=== PATIENT | female | born 1930 | race Caucasian/White ===

== ENCOUNTER 2016-08-14 06:30 | Inpatient (IN) | payer OTHER ==
[~2016-08-14] VITALS: Ht 167.6 cm; Wt 77.2 kg
[~2016-08-14 06:30] MED LIST: ATIVAN0.5 M1 PO; CATAPRES0.1 MG PO; CENTRUM SILVER1 EACH PO; CIPRO XR 500 M500 M1 PO; CIPRO500 MG PO; COREG25 M1 PO; CULTURELLE CAP1 EACH PO; FIBERCON625 MG PO; GABAPENTIN100 MG PO; GAS-X125 MG PO; HIPREX1 GM PO; LEXAPRO20 MG PO; LISINOPRIL20 MG PO; LISINOPRIL30 MG PO; NEXIUM40 MG PO; NORCO 5-325 TA1 EACH PO; SYNTHROID50 MCG PO; VITAMIN D32000 UNI1 PO; VIVELLE-DOT0.05 MG TD; ZESTRIL,PRINIVI30 MG PO; ZETIA10 MG PO
[2016-08-14 08:11] LABS: EOSINOPHIL (%) 0.2 % (0-5); HEMATOCRIT 28.2 % (36.0-46.0); IMMATURE GRANULOCYTE (%) 1.5 % (0.0-0.7); IMMATURE GRANULOCYTE COUNT 0.1 K/uL; LYMPHOCYTE COUNT 0.4 K/uL (1.0-2.8); MCH 29.5 PG (29.0-34.0); MCHC 32.6 G/DL (30.0-36.0); MCV 90.4 FL (83-99); MONOCYTE (%) 13.2 % (3-12); MONOCYTE COUNT 0.7 K/uL (0-0.8); NEUTROPHIL (%) 76.9 % (45-76); PLATELET COUNT 81 K/uL (156-360); RBC DIS.WIDTH-CV 14.1 % (11.8-14.6); RBC DIS.WIDTH-SD 46.4 % (39-53); RED BLOOD COUNT 3.12 M/uL (3.80-5.20)
[2016-08-14 08:22] LABS: WHITE BLOOD COUNT 5.2 K/uL (4.1-10.2)
[2016-08-14 08:38] LABS: CHLORIDE 105 mEq/L (99-109); POTASSIUM 3.3 mEq/L (3.7-5.4); SODIUM 137 mEq/L (136-147)
[2016-08-14 08:40] LABS: GLUCOSE 125 mg/dL (70-99)
[2016-08-14 08:42] LABS: ANION GAP 6 MEQ/L (2-14); TOTAL BILIRUBIN 0.5 mg/dL (0.0-1.0)
[2016-08-14 08:44] LABS: ALKALINE PHOSPHATASE 71 IU/L (3-129); GFR ESTIMATE (CALCULATED) 41 mL/min/
[2016-08-14 08:45] LABS: UREA NITROGEN (BUN) 16 mg/dL (9-23)
[2016-08-14 08:46] LABS: DIRECT BILIRUBIN 0.3 mg/dL (0.0-0.3)
[2016-08-14 08:47] LABS: LIPASE 2 U/L (1.0-51.0)
[2016-08-14 10:50] LABS: C DIFF TOXIN POSITIVE (NEGATIVE); PROBE CHECK PASS
[2016-08-14] MEDS ORDERED: CENTRUM SILVER1 EAC3 PO (11:20)
[2016-08-14] MEDS ORDERED: GAS-X125 MG PO (11:22)
[2016-08-14 14:28] VITALS: BP 173/74
[2016-08-14 23:58] VITALS: BP 170/70
[2016-08-15] VITALS (7 sets, daily range): BP systolic 170–230; BP diastolic 58–82
[2016-08-15 06:33] LABS: HEMATOCRIT 27.2 % (36.0-46.0); MCH 29.3 PG (29.0-34.0); MCHC 32.4 G/DL (30.0-36.0); MCV 90.7 FL (83-99); MEAN PLAT.VOLUME 10.1 uM^3 (9.5-12.4); PLATELET COUNT 68 K/uL (156-360); RBC DIS.WIDTH-CV 14.3 % (11.8-14.6); RBC DIS.WIDTH-SD 47.8 % (39-53); WHITE BLOOD COUNT 3.5 K/uL (4.1-10.2)
[2016-08-15 06:59] LABS: ALKALINE PHOSPHATASE 64 IU/L (3-129); ANION GAP 10 MEQ/L (2-14); CHLORIDE 102 MEQ/L (99-109); GFR ESTIMATE (CALCULATED) 45 mL/min/; POTASSIUM 3.3 MEQ/L (3.7-5.4); SAMPLE HEMOLYSIS CHECK 0; SAMPLE ICTERIC CHECK 0; SAMPLE LIPEMIA CHECK 0; SODIUM 133 MEQ/L (136-147); TOTAL BILIRUBIN 0.4 MG/DL (0.0-1.0); UREA NITROGEN (BUN) 18 mg/dL (9-23)
[2016-08-15 07:12] LABS: GLUCOSE 93 mg/dL (70-99)
[2016-08-16] VITALS (8 sets, daily range): BP systolic 118–220; BP diastolic 52–75
[2016-08-16 07:43] LABS: HEMATOCRIT 25.8 % (36.0-46.0); MCH 30.6 PG (29.0-34.0); MCHC 33.3 G/DL (30.0-36.0); MCV 91.8 FL (83-99); RBC DIS.WIDTH-CV 14.4 % (11.8-14.6); RBC DIS.WIDTH-SD 48.9 % (39-53); RED BLOOD COUNT 2.81 M/uL (3.80-5.20); WHITE BLOOD COUNT 2.9 K/uL (4.1-10.2)
[2016-08-16 07:44] LABS: PLATELET COUNT 98 K/uL (156-360)
[2016-08-16 08:20] LABS: ANION GAP 5 MEQ/L (2-14); CHLORIDE 111 MEQ/L (99-109); GFR ESTIMATE (CALCULATED) 50 mL/min/; GLUCOSE 85 mg/dL (70-99); SAMPLE HEMOLYSIS CHECK 0; SAMPLE ICTERIC CHECK 0; SAMPLE LIPEMIA CHECK 0; SODIUM 138 MEQ/L (136-147); UREA NITROGEN (BUN) 19 mg/dL (9-23)
[2016-08-16 08:21] LABS: POTASSIUM 4.4 MEQ/L (3.7-5.4)
[2016-08-16 14:47] LABS: ADD MIUA? YES; BILIRUBIN NEGATIVE; BLOOD SMALL; COLOR YELLOW ((YELLOW)); GLUCOSE (STRIP) NEGATIVE; KETONES NEGATIVE; LEUKOCYTES LARGE; NITRITE POSITIVE; PROTEIN (STRIP) 30; SPECIFIC GRAVITY 1.009 (1.000-1.030); UROBILINOGEN 0.2 MG/DL (0.2-1.0)
[2016-08-16 15:48] LABS: BACTERIA 4+ /HPF; CASTS NONE SEEN /LPF; EPITHELIAL CELLS RARE /HPF; MUCUS NONE SEEN /LPF; RED BLOOD CELLS NONE SEEN /HPF (0-5); WHITE BLOOD CELLS TNTC /HPF (0-5)
[2016-08-17] VITALS (8 sets, daily range): BP systolic 150–190; BP diastolic 56–74
[2016-08-17 07:30] LABS: EOSINOPHIL (%) 0.9 % (0-5); HEMATOCRIT 25.2 % (36.0-46.0); IMMATURE GRANULOCYTE (%) 1.4 % (0.0-0.7); IMMATURE GRANULOCYTE COUNT 0.1 K/uL; INSTRUMENT ABS NEUTROPHIL CT 2.3 K/uL; LYMPHOCYTE COUNT 0.8 K/uL (1.0-2.8); MCH 30.7 PG (29.0-34.0); MCHC 33.3 G/DL (30.0-36.0); MEAN PLAT.VOLUME 10.1 uM^3 (9.5-12.4); MONOCYTE (%) 8.9 % (3-12); MONOCYTE COUNT 0.3 K/uL (0-0.8); NEUTROPHIL (%) 65.9 % (45-76); NEUTROPHIL COUNT 2.3 K/uL (1.8-6.4); PLATELET COUNT 106 K/uL (156-360); RBC DIS.WIDTH-CV 14.8 % (11.8-14.6); RBC DIS.WIDTH-SD 49.2 % (39-53); RED BLOOD COUNT 2.74 M/uL (3.80-5.20); WHITE BLOOD COUNT 3.5 K/uL (4.1-10.2)
[2016-08-18 02:40] VITALS: BP 148/62
[2016-08-18 08:15] VITALS: BP 160/72
[2016-08-18 08:18] LABS: HEMATOCRIT 26.4 % (36.0-46.0); MCH 30.4 PG (29.0-34.0); MCV 92.3 FL (83-99); MEAN PLAT.VOLUME 9.6 uM^3 (9.5-12.4); PLATELET COUNT 111 K/uL (156-360); RBC DIS.WIDTH-CV 14.7 % (11.8-14.6); RBC DIS.WIDTH-SD 49.4 % (39-53); RED BLOOD COUNT 2.86 M/uL (3.80-5.20); WHITE BLOOD COUNT 3.6 K/uL (4.1-10.2)
[2016-08-18 09:43] LABS: ANION GAP 6 MEQ/L (2-14); CHLORIDE 105 MEQ/L (99-109); GFR ESTIMATE (CALCULATED) 50 mL/min/; GLUCOSE 88 mg/dL (70-99); IRON 65 MCG/DL (35-150); SAMPLE HEMOLYSIS CHECK 0; SAMPLE ICTERIC CHECK 0; SAMPLE LIPEMIA CHECK 0; SODIUM 139 MEQ/L (136-147); UREA NITROGEN (BUN) 22 mg/dL (9-23)
[2016-08-18 10:21] LABS: FERRITIN 236 NG/ML (10-291)
[2016-08-18] MEDS ORDERED: APRESOLINE50 MG PO (10:38)
[2016-08-18] MEDS ORDERED: CLONIDINE HCL0.2 MG PO (10:38)
[2016-08-18] MEDS ORDERED: VANCOMYCIN HCL125 MG PO (10:38)
[2016-08-18 12:05] VITALS: BP 150/63
== END 2016-08-18 15:18 | disposition home or self-care (01) | DRG 872 ==
LOC: EME → EDBD 06:30 → EME 06:30 → EDOF 11:58 → 5EAST 11:58
PROVIDERS: Emergency Medicine; Hospitalist; Internal Medicine
DX: A41.89 Other specified sepsis (principal); A04.7 Enterocolitis due to Clostridium difficile; D61.818 Other pancytopenia; K57.32 Diverticulitis of large intestine without perforation or abscess without bleeding; D69.6 Thrombocytopenia, unspecified; G20 Parkinson's disease; G62.9 Polyneuropathy, unspecified; M79.7 Fibromyalgia; E78.5 Hyperlipidemia, unspecified; E03.9 Hypothyroidism, unspecified; E87.6 Hypokalemia; I16.0 Hypertensive urgency; E86.0 Dehydration; D63.1 Anemia in chronic kidney disease; K57.30 Diverticulosis of large intestine without perforation or abscess without bleeding; N30.00 Acute cystitis without hematuria; Z87.440 Personal history of urinary (tract) infections; Z66 Do not resuscitate; I12.9 Hypertensive chronic kidney disease with stage 1 through stage 4 chronic kidney disease, or unspecified chronic kidney disease; N18.9 Chronic kidney disease, unspecified
CPT/HCPCS: 74176; 80048; 80053; 80076; 81003; 82272; 82607; 82728; 82746; 83540; 83605; 83690; 84466; 85025; 85027; 87493; 99281; 99285; J0360; J0696; J1644; J3480; J7030; J7050; S0030

== ENCOUNTER 2017-02-23 11:01 | Inpatient (IN) | payer OTHER ==
[~2017-02-23] VITALS: Ht 172.7 cm; Wt 71.9 kg
[~2017-02-23 11:01] MED LIST changes: +APRESOLINE50 MG PO; +CENTRUM SILVER1 EAC3 PO; +CLONIDINE HCL0.2 MG PO; -LISINOPRIL20 MG PO; +VANCOMYCIN HCL125 MG PO
[2017-02-23 12:41] LABS: EOSINOPHIL (%) 0.2 % (0-5); HEMATOCRIT 30.3 % (36.0-46.0); IMMATURE GRANULOCYTE (%) 0.7 % (0.0-0.7); INSTRUMENT ABS NEUTROPHIL CT 3.1 K/uL; LYMPHOCYTE COUNT 0.6 K/uL (1.0-2.8); MCH 30.3 PG (29.0-34.0); MCV 91.8 FL (83-99); MEAN PLAT.VOLUME 9.7 uM^3 (9.5-12.4); MONOCYTE (%) 9.7 % (3-12); MONOCYTE COUNT 0.4 K/uL (0-0.8); NEUTROPHIL (%) 74.5 % (45-76); NEUTROPHIL COUNT 3.1 K/uL (1.8-6.4); PLATELET COUNT 75 K/uL (156-360); RBC DIS.WIDTH-CV 13.5 % (11.8-14.6); RBC DIS.WIDTH-SD 46.3 % (39-53); WHITE BLOOD COUNT 4.2 K/uL (4.1-10.2)
[2017-02-23 12:49] LABS: CHLORIDE 105 mEq/L (99-109); POTASSIUM 3.5 mEq/L (3.7-5.4); SODIUM 140 mEq/L (136-147)
[2017-02-23 12:51] LABS: GLUCOSE 106 mg/dL (70-99)
[2017-02-23 12:52] LABS: ANION GAP 8 MEQ/L (2-14)
[2017-02-23 12:55] LABS: GFR ESTIMATE (CALCULATED) 45 mL/min/; UREA NITROGEN (BUN) 17 mg/dL (9-23)
[2017-02-23 13:24] LABS: C DIFF TOXIN POSITIVE (NEGATIVE)
[2017-02-23 13:25] LABS: PROBE CHECK PASS
[2017-02-23 16:33] VITALS: BP 175/77
[2017-02-23 16:49] LABS: C-REACTIVE PROTEIN 21.8 MG/L (0-10)
[2017-02-23 20:06] VITALS: BP 189/71
[2017-02-23 21:32] VITALS: BP 220/64
[2017-02-23 22:44] VITALS: BP 142/50
[2017-02-24] VITALS (7 sets, daily range): BP systolic 138–160; BP diastolic 63–70
[2017-02-24 06:21] LABS: HEMATOCRIT 25.4 % (36.0-46.0); MCH 30.2 PG (29.0-34.0); MCHC 32.7 G/DL (30.0-36.0); MCV 92.4 FL (83-99); MEAN PLAT.VOLUME 10.1 uM^3 (9.5-12.4); PLATELET COUNT 61 K/uL (156-360); RBC DIS.WIDTH-SD 47.4 % (39-53); RED BLOOD COUNT 2.75 M/uL (3.80-5.20)
[2017-02-24 07:02] LABS: ANION GAP 6 MEQ/L (2-14); CHLORIDE 109 MEQ/L (99-109); GFR ESTIMATE (CALCULATED) 50 mL/min/; GLUCOSE 96 mg/dL (70-99); POTASSIUM 3.6 MEQ/L (3.7-5.4); SAMPLE HEMOLYSIS CHECK 0; SAMPLE ICTERIC CHECK 0; SAMPLE LIPEMIA CHECK 0; SODIUM 140 MEQ/L (136-147); UREA NITROGEN (BUN) 14 mg/dL (9-23)
[2017-02-25 04:00] VITALS: BP 189/77
[2017-02-25 06:44] LABS: HEMATOCRIT 25.6 % (36.0-46.0); MCH 29.8 PG (29.0-34.0); MCV 93.1 FL (83-99); PLATELET COUNT 60 K/uL (156-360); RBC DIS.WIDTH-CV 13.8 % (11.8-14.6); RBC DIS.WIDTH-SD 47.6 % (39-53); RED BLOOD COUNT 2.75 M/uL (3.80-5.20); WHITE BLOOD COUNT 3.6 K/uL (4.1-10.2)
[2017-02-25 07:05] LABS: ANION GAP 5 MEQ/L (2-14); CHLORIDE 110 MEQ/L (99-109); GFR ESTIMATE (CALCULATED) 50 mL/min/; GLUCOSE 101 mg/dL (70-99); POTASSIUM 4.1 MEQ/L (3.7-5.4); SAMPLE HEMOLYSIS CHECK 0; SAMPLE ICTERIC CHECK 0; SAMPLE LIPEMIA CHECK 0; SODIUM 139 MEQ/L (136-147); UREA NITROGEN (BUN) 12 mg/dL (9-23)
[2017-02-25 07:55] VITALS: BP 190/90
[2017-02-25 08:57] VITALS: BP 142/50
[2017-02-25 11:40] VITALS: BP 176/84
[2017-02-25] MEDS ORDERED: VANCOMYCIN HCL125 MG PO (16:19)
[2017-02-25] MEDS ORDERED: VANCOMYCIN125 MG/2.5 PO (16:19)
[2017-02-25 20:01] VITALS: BP 164/86
[2017-02-25 23:15] VITALS: BP 142/62
[2017-02-26 03:18] VITALS: BP 160/50
[2017-02-26 03:39] VITALS: BP 155/74
[2017-02-26 05:30] VITALS: BP 210/70
[2017-02-26 07:03] VITALS: BP 160/50
[2017-02-26 07:38] VITALS: BP 160/50
[2017-02-26] MEDS ORDERED: APRESOLINE50 MG PO (10:24)
[2017-02-26 11:35] VITALS: BP 136/72
== END 2017-02-26 14:55 | disposition home health service (06) | DRG 373 ==
LOC: EME 11:01 → 5EAST 13:58 → EDOF 13:58 → ENRESERV 13:59 → 5EAST 16:19
PROVIDERS: Emergency Medicine; Internal Medicine
DX: A04.71 Enterocolitis due to Clostridium difficile, recurrent (principal); Z60.2 Problems related to living alone; Z82.3 Family history of stroke; Z87.440 Personal history of urinary (tract) infections; Z86.19 Personal history of other infectious and parasitic diseases; M85.80 Other specified disorders of bone density and structure, unspecified site; I16.0 Hypertensive urgency; Z66 Do not resuscitate; I10 Essential (primary) hypertension; G20 Parkinson's disease; E87.6 Hypokalemia; E86.0 Dehydration; D72.819 Decreased white blood cell count, unspecified; D64.9 Anemia, unspecified; D69.6 Thrombocytopenia, unspecified; M21.00 Valgus deformity, not elsewhere classified, unspecified site; M79.7 Fibromyalgia; Z96.642 Presence of left artificial hip joint; Z91.040 Latex allergy status; Z90.49 Acquired absence of other specified parts of digestive tract; Z90.710 Acquired absence of both cervix and uterus; Z82.49 Family history of ischemic heart disease and other diseases of the circulatory system
CPT/HCPCS: 73630; 80048; 81003; 85025; 85027; 86140; 87040; 87493; 99281; 99285; J0360; J1644; J3480; J7030

== ENCOUNTER 2017-07-21 12:29 | Emergency (ER) | payer OTHER ==
[~2017-07-21] VITALS: Ht 167.6 cm; Wt 70.0 kg
[~2017-07-21 12:29] MED LIST changes: +VANCOMYCIN125 MG/2.5 PO
[2017-07-21 12:57] LABS: BASOPHIL (%) 0.2 % (0-1); EOSINOPHIL (%) 0.2 % (0-5); HEMATOCRIT 26.6 % (36.0-46.0); HEMOGLOBIN 8.9 G/DL (11.9-15.5); IMMATURE GRANULOCYTE (%) 0.7 % (0.0-0.7); LYMPHOCYTE (%) 7.9 % (15-42); LYMPHOCYTE COUNT 0.3 K/uL (1.0-2.8); MCHC 33.5 G/DL (30.0-36.0); MCV 89.6 FL (83-99); MONOCYTE (%) 11.5 % (3-12); MONOCYTE COUNT 0.5 K/uL (0-0.8); NEUTROPHIL (%) 79.5 % (45-76); NEUTROPHIL COUNT 3.2 K/uL (1.8-6.4); PLATELET COUNT 63 K/uL (156-360); RBC DIS.WIDTH-CV 13.4 % (11.8-14.6); RBC DIS.WIDTH-SD 43.8 % (39-53); RED BLOOD COUNT 2.97 M/uL (3.80-5.20); WHITE BLOOD COUNT 4.1 K/uL (4.1-10.2)
[2017-07-21 13:05] LABS: CHLORIDE 105 mEq/L (99-109); POTASSIUM 3.7 mEq/L (3.7-5.4); SODIUM 136 mEq/L (136-147)
[2017-07-21 13:06] LABS: GLUCOSE 124 mg/dL (70-99)
[2017-07-21 13:10] LABS: CREATININE 1.3 mg/dL (0.6-1.3); GFR ESTIMATE (CALCULATED) 41 mL/min/
[2017-07-21 13:11] LABS: UREA NITROGEN (BUN) 18 mg/dL (9-23)
[2017-07-21] MEDS ORDERED: ZOFRAN4 MG PO (14:37)
[2017-07-21 15:08] VITALS: BP 169/91
== END 2017-07-21 15:56 | disposition home or self-care (01) ==
LOC: EME 12:29
PROVIDERS: Emergency Medicine
DX: R19.7 Diarrhea, unspecified (principal); D64.9 Anemia, unspecified; D69.6 Thrombocytopenia, unspecified; M79.7 Fibromyalgia; E78.00 Pure hypercholesterolemia, unspecified; Z90.49 Acquired absence of other specified parts of digestive tract; Z96.642 Presence of left artificial hip joint; Z91.040 Latex allergy status; Z88.5 Allergy status to narcotic agent; Z88.2 Allergy status to sulfonamides; Z88.8 Allergy status to other drugs, medicaments and biological substances
CPT/HCPCS: 80048; 85025; 87493; 99281; 99285; J2405; J7030